=== PATIENT | female | born 1980 | race Caucasian/White ===

== ENCOUNTER 2016-05-16 10:31 | Emergency (ER) | payer OTHER ==
[2016-05-16 11:04] VITALS: BP 96/60
--- NOTE | 2016-05-16 12:44 | UC ---
Skin Complaint HPI - HPI Summary HPI Summary: RED HIVE RASH ON ABDOMEN. BEGAN YESTERDAY, NO SPREADING. NO FEVER. ITCHY, DID NOT SEEM TO IMPROVE WITH OTC HYDROCORTIZONE CREME. PATIENT IS A MASSAGE THERAPY STUDENT, WORKS WITH UNSCENTED LOTION. NO TICK BITES. NO SLEEPING IN NEW BEDS. FRIEND HAD SCABIES, BUT NO PHYSICAL CONTACT - MET FOR COFFEE AFTER FRIEND HAD SECOND TREATMENT. - History of Current Complaint Chief Complaint: UCSkin Time Seen by Provider: 05/16/16 11:18 Stated Complaint: RASH Hx Obtained From: Patient Hx Last Menstrual Period: 04/17/16 Onset/Duration: Sudden Onset, Lasting Hours, Still Present Skin Exposure Onset/Duration: Hours Ago Onset Severity: Mild Current Severity: Mild Pain Intensity: 0 Pain Scale Used: 0-10 Numeric Location: Discrete - RIGHT ABDOMEN AND RIGHT CHEST Character: Pruritus, Hives, Redness Aggravating: Nothing Alleviating: OTC Meds, OTC Creams/Salves Associated Signs & Symptoms: Negative: Nausea, Vomiting, Diaphoresis, Fever, Chills, Cough, Wheezing, Hoarseness, Throat Tightening, Rash, Drainage, Bruising , Tenderness, Red Streaks Related History: Possible Reaction to: Insect, Possible Reaction to: Environmental Exposure - Allergy/Home Medications Allergies/Adverse Reactions: Allergies Allergy/AdvReac Type Severity Reaction Status Date / Time No Known Allergies Allergy Verified 05/16/16 10:57 Home Medications: Home Medications Acyclovir TAB* [Zovirax TAB*] 05/16/16 [History] Cholecalciferol [Vitamin D] 1,000 unit PO 05/16/16 [History] buPROPion TAB* [Wellbutrin TAB*] 300 mg PO BID 05/16/16 [History Confirmed 05/16] Review of Systems Constitutional: Negative Skin: Rash Eyes: Negative ENT: Negative Respiratory: Negative Cardiovascular: Negative Gastrointestinal: Negative Genitourinary: Negative Motor: Negative Neurovascular: Negative Musculoskeletal: Negative Neurological: Negative Psychological: Negative All Other Systems Reviewed And Are Negative: Yes PMH/Surg Hx/FS Hx/Imm Hx Previously Healthy: Yes - Surgical History Surgical History: Yes Surgery Procedure, Year, and Place: x 2 - Family History Known Family History: Negative: Blood Disorder - Social History Occupation: Student Lives: With Family Alcohol Use: None Substance Use Type: None Smoking Status (MU): Former Smoker Length of Time of Smoking/Using Tobacco: 10-15 years Have You Smoked in the Last Year: No When Did the Patient Quit Smoking/Using Tobacco: 01/2014 Physical Exam Triage Information Reviewed: Yes Appearance: Well-Appearing, No Pain Distress, Well-Nourished Vital Signs: Initial Vital Signs Pulse 83 05/16/16 10:58 Resp 16 05/16/16 10:58 BP 96/60 05/16/16 10:58 Pulse Ox 100 05/16/16 10:58 Vital Signs Reviewed: Yes Eye Exam: Normal Eyes: Positive: Conjunctiva Clear ENT Exam: Normal ENT: Positive: Normal ENT inspection, Hearing grossly normal, Pharynx normal, TMs normal Dental Exam: Normal Neck exam: Normal Neck: Positive: Supple, Nontender, No Lymphadenopathy Respiratory Exam: Normal Respiratory: Positive: Chest non-tender, Lungs clear, Normal breath sounds, No respiratory distress, No accessory muscle use Cardiovascular Exam: Normal Cardiovascular: Positive: RRR, No Murmur, Pulses Normal Abdominal Exam: Normal Abdomen Description: Positive: Nontender, No Organomegaly Musculoskeletal Exam: Normal Musculoskeletal: Positive: Strength Intact, ROM Intact, No Edema Neurological Exam: Normal Neurological: Positive: Alert Psychological Exam: Normal Psychological: Positive: Normal Response To Family Skin Exam: Normal Course/Dx - Differential Diagnoses - Skin Complaint Differential Diagnoses: Contact Dermatitis, Drug Rash, Poison Zenia, Scabies, Tinea, Varicella Zoster - Diagnoses Provider Diagnoses: CONTACT DERMATITIS Discharge - Discharge Plan Condition: Stable Disposition: HOME Prescriptions: predniSONE TAB* [Deltasone TAB*] 10 mg PO DAILY #26 tab Patient Education Materials: Contact Dermatitis (ED) Referrals: Oniel Alcaraz MD [Primary Care Provider] - Additional Instructions: BENADRYL 50mg TWO TIMES DAILY
== END 2016-05-16 12:12 | disposition home or self-care (01) ==
LOC: UCEAST 10:31
DX: L25.9 Unspecified contact dermatitis, unspecified cause (principal); Z87.891 Personal history of nicotine dependence
CPT/HCPCS: 99212; G0463

== ENCOUNTER 2017-08-11 08:59 | Emergency (ER) | payer OTHER ==
[2017-08-11] MEDS ORDERED: cefTRIAXone VIAL(*) 1,000 MG VIAL IVPB ONE (10:13)
[2017-08-11] MEDS ORDERED: NS 0.9% 1000 ML* 1,000 ML IV ONE (11:00)
[2017-08-11 11:11] VITALS: BP 91/52
--- NOTE | 2017-08-11 12:06 | UC ---
Complaint Female HPI - HPI Summary HPI Summary: 36 yo WF c/o B/L LP associated with foul smelling urine x 3 days - History Of Current Complaint Chief Complaint: UCBackPain Stated Complaint: BACK PAIN,FEVER Time Seen by Provider: 08/11/17 10:04 Hx Obtained From: Patient Hx Last Menstrual Period: 6weeks ago-normal ?: No Onset/Duration: Lasting Days Severity Initially: Moderate Severity Currently: Severe Pain Intensity: 8 - Allergies/Home Medications Allergies/Adverse Reactions: Allergies Allergy/AdvReac Type Severity Reaction Status Date / Time Latex, Natural Rubber Allergy Rash Verified 08/11/17 09:21 PMH/Surg Hx/FS Hx/Imm Hx - Additional Past Medical History Additional PMH: none Previously Healthy: Yes - Surgical History Surgical History: Yes Surgery Procedure, Year, and Place: x 2. sx on rt leg vein closure-2 weeks ago - Family History Known Family History: Negative: Blood Disorder - Social History Alcohol Use: None Substance Use Type: None Smoking Status (MU): Former Smoker Length of Time of Smoking/Using Tobacco: 10-15 years Have You Smoked in the Last Year: No When Did the Patient Quit Smoking/Using Tobacco: 01/2014 Review of Systems Constitutional: Negative Skin: Negative Eyes: Negative ENT: Negative Respiratory: Negative Cardiovascular: Negative Genitourinary: Other - foul smelling urine with LBP Motor: Negative Neurovascular: Negative Musculoskeletal: Negative Neurological: Negative Psychological: Negative All Other Systems Reviewed And Are Negative: Yes Physical Exam Triage Information Reviewed: Yes Appearance: Pain Distress Vital Signs: Initial Vital Signs Temp 37.1 C 08/11/17 09:15 Pulse 90 08/11/17 09:15 Resp 16 08/11/17 09:15 BP 94/58 08/11/17 09:15 Pulse Ox 100 08/11/17 09:15 Eye Exam: Normal ENT Exam: Normal Dental Exam: Normal Neck exam: Normal Neck: Positive: 1 Respiratory Exam: Normal Cardiovascular Exam: Normal Abdomen Description: Positive: Soft, CVA Tenderness (R), CVA Tenderness (L) Musculoskeletal Exam: Normal Neurological Exam: Normal Psychological Exam: Normal Skin Exam: Normal Complaint Female Dx - Course Course Of Treatment: UA positive with psotive CVA tenderness- rocephin 2gIV and 0ne liter of NS given in UC with mild clinical improvement, pt to finish outpt abx course with cipro 500 BID x 10more days - Differential Dx/Diagnosis Provider Diagnoses: pyelonephritis Discharge - Sign-Out/Discharge Documenting (check all that apply): Discharge/Admit/Transfer - Discharge Plan Condition: Stable Disposition: HOME Prescriptions: Ciprofloxacin TAB* [Cipro 500 MG TAB*] 500 mg PO BID 10 Days #20 tab Patient Education Materials: Urinary Tract Infection in Women (ED), Kidney Infection (ED) Referrals: Oniel Alcaraz MD [Primary Care Provider] - Additional Instructions: take meds as directed, go to ER if symptoms worsen - Billing Disposition and Condition Condition: STABLE Disposition: HOME
--- NOTE | 2017-08-13 19:09 | PN ---
Progress Note - Progress Note Date of Service: 08/13/17 Note: Patient's urine culture grew e coli Greater than 100,000. Patient place cipro which is sensitive to no further action required.
== END 2017-08-11 12:10 | disposition home or self-care (01) ==
LOC: UCEAST 08:59
DX: N10 Acute pyelonephritis (principal); B96.20 Unspecified Escherichia coli [E. coli] as the cause of diseases classified elsewhere; Z91.040 Latex allergy status; Z87.891 Personal history of nicotine dependence
CPT/HCPCS: 81003; 87077; 87086; 87186; 96360; 96365; 99212; G0463; J0696

== ENCOUNTER 2017-08-26 22:21 | Emergency (ER) | payer OTHER ==
[2017-08-26 22:41] LABS: Urine Appearance Clear; Urine Blood Negative (Negative); Urine Color Yellow; Urine Ketones Negative (Negative); Urine Protein Negative (Negative); Urine Specific Gravity 1.018 (1.010-1.030); Urine Urobilinogen Negative (Negative)
[2017-08-27] MEDS ORDERED: Diazepam TAB(*) 5 MG PO ONE (00:15)
[2017-08-27 00:26] LABS: ABS Basophils 0.1 10^3/ul (0-0.2); ABS Eosinophils 0.1 10^3/ul (0-0.6); ABS Monocytes 0.6 10^3/ul (0-0.8); ABS Neutrophils 4.2 10^3/ul (1.5-7.7); ABS Nucleated RBC 0 10^3/ul; Eosinophil % 0.9 % (0-6); Hematocrit 38 % (35-47); Lymphocyte % 38.1 % (25-47); Mean Corpuscular HGB Conc 34 g/dl (31-36); Mean Corpuscular Hemoglobin 31 pg (27-31); Mean Corpuscular Volume 91 fL (80-97); Mean Platelet Volume 8.2 um3 (7.4-10.4); Nucleated Red Blood Cells % 0; Platelet Count 301 10^3/ul (150-450); Red Blood Count 4.16 10^6/ul (4.0-5.4); Red Cell Distribution Width 13 % (10.5-15); White Blood Count 7.9 10^3/ul (3.5-10.8)
[2017-08-27 00:43] LABS: EGFR Non-African American 68.2 (>60)
--- NOTE | 2017-08-27 01:01 | ED ---
Back Pain - HPI Summary HPI Summary: Complains of bilateral lower back pain 2 days. Had recent kidney infection 2 weeks ago that involved low back pain among other urinary symptoms and patient is concerned she has kidney infection again. Patient states is given IV antibiotics and took full course of Cipro with complete resolution of all symptoms. Low back pain started up 2 days ago. Patient also states she has had recent surgery on her leg and has been compensating to favor right leg. Unsure if low back pain is musculoskeletal or not. Denies incontinence, urinary retention, radiation of pain, trauma, fever, cough, sore throat, CP, SOB , N/V/D, abdominal pain, change in urine, vaginal symptoms. LMP 1 month ago. Medical history is depression - History of Current Complaint Chief Complaint: EDUrogenitalProblems Stated Complaint: BACK PAIN Time Seen by Provider: 08/26/17 23:30 Hx Obtained From: Patient Hx Last Menstrual Period: 6weeks ago-normal Onset/Duration: Gradual Onset Onset/Duration: Started Days Ago Timing: Constant Severity Initially: Mild Severity Currently: Moderate Pain Intensity: 7 Pain Scale Used: 0-10 Numeric Character: Aching Aggravating Symptom(s): Movement Alleviating Symptom(s): Rest - Allergies/Home Medications Allergies/Adverse Reactions: Allergies Allergy/AdvReac Type Severity Reaction Status Date / Time Latex, Natural Rubber Allergy Rash Verified 08/11/17 09:21 PMH/Surg Hx/FS Hx/Imm Hx - Surgical History Surgery Procedure, Year, and Place: x 2. sx on rt leg vein closure-2 weeks ago Infectious Disease History: No Infectious Disease History: Denies: Traveled Outside the [place] in Last 30 Days - Family History Known Family History: Negative: Blood Disorder - Social History Alcohol Use: None Substance Use Type: Reports: None Smoking Status (MU): Former Smoker Length of Time of Smoking/Using Tobacco: 10-15 years Have You Smoked in the Last Year: No Review of Systems Constitutional: Negative Eyes: Negative ENT: Negative Cardiovascular: Negative Respiratory: Negative Gastrointestinal: Negative Genitourinary: Negative Musculoskeletal: Negative Skin: Negative Neurological: Negative Psychological: Normal All Other Systems Reviewed And Are Negative: Yes Physical Exam - Summary Physical Exam Summary: Paraspinal tenderness along the L-spine. There is mild CVA tenderness bilaterally. PMS intact distally in bilateral extremities. No evidence of ecchymosis, erythema, swelling, deformity to lower back. Triage Information Reviewed: Yes Vital Signs On Initial Exam: Initial Vitals Temp Pulse Resp BP Pulse Ox 98.4 F 91 16 113/76 99 08/26/17 22:23 08/26/17 22:23 08/26/17 22:23 08/26/17 22:23 08/26/17 22:23 Vital Signs Reviewed: Yes Appearance: Positive: Well-Appearing Skin: Positive: Warm Head/Face: Positive: Normal Head/Face Inspection Eyes: Positive: Normal Neck: Positive: Supple Respiratory/Lung Sounds: Positive: Clear to Auscultation Cardiovascular: Positive: Normal Abdomen Description: Positive: Nontender Musculoskeletal: Positive: Normal Neurological: Positive: Normal Psychiatric: Positive: Normal AVPU Assessment: Alert - Jonathan Coma Scale Best Eye Response: 4 - Spontaneous Best Motor Response: 6 - Obeys Commands Best Verbal Response: 5 - Oriented Coma Scale Total: 15 Diagnostics - Vital Signs Vital Signs Temp Pulse Resp BP Pulse Ox 08/27/17 00:43 16 08/27/17 00:19 98/70 08/26/17 23:49 93/63 08/26/17 23:27 74 99 08/26/17 23:19 70 106/61 100 08/26/17 22:23 98.4 F 91 16 113/76 99 - Laboratory Lab Results: Lab Results 08/26/17 08/27/17 08/27/17 Range/Units 22:27 00:18 00:18 WBC 7.9 (3.5-10.8) 10^3/ul RBC 4.16 (4.0-5.4) 10^6/ul Hgb 13.0 (12.0-16.0) g/dl Hct 38 (35-47) % MCV 91 (80-97) fL MCH 31 (27-31) pg MCHC 34 (31-36) g/dl RDW 13 (10.5-15) % Plt Count 301 (150-450) 10^3/ul MPV 8.2 (7.4-10.4) um3 Neut % (Auto) 52.6 (38-83) % Lymph % (Auto) 38.1 (25-47) % [place] % (Auto) 7.2 H (0-7) % Eos % (Auto) 0.9 (0-6) % Baso % (Auto) 1.2 (0-2) % Absolute Neuts (auto) 4.2 (1.5-7.7) 10^3/ul Absolute Lymphs (auto) 3.0 (1.0-4.8) 10^3/ul Absolute Monos (auto) 0.6 (0-0.8) 10^3/ul Absolute Eos (auto) 0.1 (0-0.6) 10^3/ul Absolute Basos (auto) 0.1 (0-0.2) 10^3/ul Absolute Nucleated RBC 0 10^3/ul Nucleated RBC % 0 Sodium 139 (139-145) mmol/L Potassium 3.4 L (3.5-5.0) mmol/L Chloride 105 (101-111) mmol/L Carbon Dioxide 26 (22-32) mmol/L Anion Gap 8 (2-11) mmol/L BUN 12 (6-24) mg/dL Creatinine 0.94 (0.51-0.95) mg/dL Est GFR ( Amer) 87.7 (>60) Est GFR (Non-Af Amer) 68.2 (>60) BUN/Creatinine Ratio 12.8 (8-20) Glucose 91 (70-100) mg/dL Calcium 9.2 (8.6-10.3) mg/dL Total Bilirubin 0.50 (0.2-1.0) mg/dL AST 13 (13-39) U/L ALT 12 (7-52) U/L Alkaline Phosphatase 44 (34-104) U/L C-Reactive Protein < 1.00 (< 5.00) mg/L Total Protein 6.9 (6.4-8.9) g/dL Albumin 4.3 (3.2-5.2) g/dL Globulin 2.6 (2-4) g/dL Albumin/Globulin Ratio 1.7 (1-3) Beta HCG, Quant < 0.60 mIU/mL Urine Color Yellow Urine Appearance Clear Urine pH 5.0 (5-9) Ur Specific [place] 1.018 (1.010-1.030) Urine Protein Negative (Negative) Urine Ketones Negative (Negative) Urine Blood Negative (Negative) Urine Nitrate Negative (Negative) Urine Bilirubin Negative (Negative) Urine Urobilinogen Negative (Negative) Ur Leukocyte Esterase Negative (Negative) Urine Glucose Negative (Negative) Result Diagrams: 08/27/17 00:18 08/27/17 00:18 Lab Statement: Any lab studies that have been ordered have been reviewed, and results considered in the medical decision making process. Re-Evaluation - Re-Evaluation 1 Re-Evaluation Time: 01:32 - patient lower back pain improved from 710-310 with Valium. Patient seen in her room bending over and stretching Change: Improved Back Pain Course/Dx - Course Course Of Treatment: Physical exam more consistent with musculoskeletal source of lower back pain, then kidney infection. Paraspinal tenderness at L-spine sinificant. Mild bilateral CVA tenderness Patient has history of Kidney infection 2 weeks ago with low back pain, completed course of Cipro and symptoms resolved. States low back pain started again 2 days ago, denies any other symptoms. Patient states possible muscle pain as she gets low back pain chronically, but was concerned due to recent kidney infection. Labs and vital signs all within normal limits. She will be given prescription for Valium as a muscle relaxer, and a prescription for Cipro. Explained to patient that she try the Valium first and if low back pain does not resolve, then to fill prescription for Cipro. Patient agrees with plan - Diagnoses Provider Diagnoses: Low back pain Discharge - Sign-Out/Discharge Documenting (check all that apply): Discharge/Admit/Transfer - Discharge Plan Condition: Stable Disposition: HOME Prescriptions: Ciprofloxacin HCl [Cipro] 500 mg PO BID 10 Days #20 tablet Diazepam TAB(*) [Valium TAB(*)] 5 mg PO TID PRN 2 Days #6 tab MDD 3 tabs PRN Reason: Pain Patient Education Materials: Muscle Spasm (ED) Referrals: Oniel Alcaraz MD [Primary Care Provider] - Additional Instructions: Follow-up with primary care. Return to the ED for any new or worsening symptoms - Billing Disposition and Condition Condition: STABLE Disposition: HOME
[2017-08-27 01:32] VITALS: BP 101/71
== END 2017-08-27 01:38 | disposition home or self-care (01) ==
LOC: ED 22:21
DX: M54.5 Low back pain (principal); Z32.02 Encounter for pregnancy test, result negative; Z91.040 Latex allergy status; Z87.891 Personal history of nicotine dependence
CPT/HCPCS: 36415; 80053; 81003; 84702; 85025; 86140; 99283; A9270-GY

== ENCOUNTER 2017-11-18 18:00 | Emergency (ER) | payer OTHER ==
[2017-11-18 18:10] VITALS: BP 107/70
--- NOTE | 2017-11-18 18:22 | ED ---
Upper Extremity Pain - HPI Summary HPI Summary: 36-year-old female presents with right arm paresthesias for the past day. She denies any known injury. She states that she was sitting when the pain started. She states she had some tingling in localized in her forearm and then it spread up to her humerus and now it is her entire arm from the shoulder down. She denies any neck pain. She denies any weakness. never had this pain before. She states the pain is a burning sensation. States she is ambidextrous but favors her right hand. 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 She states she's has more stress in her life. She denies any suicidal or homicidal ideations. She denies any recent medication change. - History of Current Complaint Chief Complaint: UCUpperExtremity Stated Complaint: ARM AND HAND COMPLAINT Time Seen by Provider: 11/18/17 18:16 Hx Last Menstrual Period: 2 WEEKS AGO - Allergies/Home Medications Allergies/Adverse Reactions: Allergies Allergy/AdvReac Type Severity Reaction Status Date / Time Latex, Natural Rubber Allergy Rash Verified 11/18/17 18:10 Home Medications: Home Medications Control Pill* 1 tab PO DAILY 11/18/17 [History Confirmed 11/18/17] PMH/Surg Hx/FS Hx/Imm Hx Endocrine/Hematology History: Denies: Hx Anticoagulant Therapy Psychiatric History: Reports: Hx Depression - Surgical History Surgery Procedure, Year, and Place: x 2, BILAT LEG VEIN SURGERY Infectious Disease History: No Infectious Disease History: Denies: Traveled Outside the [place] in Last 30 Days - Family History Known Family History: Negative: Blood Disorder - Social History Alcohol Use: None Substance Use Type: Reports: None Smoking Status (MU): Former Smoker Length of Time of Smoking/Using Tobacco: 10-15 years Have You Smoked in the Last Year: No Review of Systems Negative: Fever Negative: Chest Pain Negative: Shortness Of Breath Positive: Paresthesia All Other Systems Reviewed And Are Negative: Yes Physical Exam Triage Information Reviewed: Yes Vital Signs On Initial Exam: Initial Vitals Temp Pulse Resp BP Pulse Ox 99.5 F 88 16 107/70 98 11/18/17 18:04 11/18/17 18:04 11/18/17 18:04 11/18/17 18:04 11/18/17 18:04 Vital Signs Reviewed: Yes Appearance: Positive: Well-Appearing Skin: Positive: Warm, Dry Head/Face: Positive: Normal Head/Face Inspection Eyes: Positive: Normal, Conjunctiva Clear ENT: Positive: Pharynx normal Neck: Positive: Other: - nontender neck, full ROM neck Respiratory/Lung Sounds: Positive: Clear to Auscultation, Breath Sounds Present Cardiovascular: Positive: Normal, RRR Musculoskeletal: Positive: Strength/ROM Intact - right arm, Other - good pulses , sensation grossly intact, tenderness over right arm Neurological: Positive: Normal, Reflexes Intact - biceps Psychiatric: Positive: Normal Diagnostics - Vital Signs Vital Signs Temp Pulse Resp BP Pulse Ox 11/18/17 18:04 99.5 F 88 16 107/70 98 - Laboratory Lab Statement: Any lab studies that have been ordered have been reviewed, and results considered in the medical decision making process. - Radiology neck Xray Interpretation: No Acute Changes Radiology Interpretation Completed By: Radiologist Course/Dx - Course Course Of Treatment: 36-year-old female presents with right arm paresthesias for the past day. She denies any known injury. She states that she was sitting when the pain started. She states she had some tingling in localized in her forearm and then it spread up to her humerus and now it is her entire arm from the shoulder down. She denies any neck pain. She denies any weakness. never had this pain before. She states the pain is a burning sensation. States she is ambidextrous but favors her right hand. 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 on exam tenderness down right arm, sensation grossly intact. neg spurling test, full ROM arm, nontender neck. good wood craftsman strenght, biceps intact. neck xray normal. will have take tyenlol and ibuprofen for pain and follow up with primary. patient understand and agrees with plan. - Diagnoses Differential Diagnosis/HQI/PQRI: Positive: Fracture (Closed), Strain, Sprain Provider Diagnoses: Arm paresthesia, right Discharge - Sign-Out/Discharge Documenting (check all that apply): Patient Departure - Discharge Plan Condition: Good Disposition: HOME Patient Education Materials: Paresthesia (ED) Referrals: Oniel Alcaraz MD [Primary Care Provider] - Additional Instructions: Take Tylenol or ibuprofen every 6 hours as needed for pain Follow up with primary care physician within 5 days Return to if develop any new or worsening symptoms - Billing Disposition and Condition Condition: GOOD Disposition: Home
--- NOTE | 2017-11-18 18:52 | RAD ---
Indication: Right arm numbness. 5 views of the cervical spine demonstrates straightening of the normal lordosis. Spinal canal appears to be intact. Disc spaces all well-preserved. Intervertebral foramen appear patent. IMPRESSION: No fracture of the cervical spine is noted. Straightening of the normal lordosis.
== END 2017-11-18 19:00 | disposition home or self-care (01) ==
LOC: UCEAST 18:00
DX: R20.2 Paresthesia of skin (principal); Z91.040 Latex allergy status; Z79.3 Long term (current) use of hormonal contraceptives; Z87.891 Personal history of nicotine dependence
CPT/HCPCS: 72050; 99211; G0463

== ENCOUNTER 2017-11-19 16:53 | Emergency (ER) | payer OTHER ==
[2017-11-19 18:47] VITALS: BP 00/00
== END 2017-11-19 18:45 | disposition left against medical advice (07) ==
LOC: ED 16:53
DX: M79.606 Pain in leg, unspecified (principal); M25.519 Pain in unspecified shoulder; Z53.21 Procedure and treatment not carried out due to patient leaving prior to being seen by health care provider